=== PATIENT | female | born 1995 | race American Indian/Alaskan Native ===

== ENCOUNTER 2020-10-21 12:58 | Outpatient (CLI) | payer MEDICAID ==
[2020-10-21 13:18] VITALS: BP 124/79
--- NOTE | 2020-10-21 15:49 | Ultrasound Report ---
ULTRASOUND OBSTETRIC LIMITED ULTRASOUND BIOPHYSICAL PROFILE INDICATION / CLINICAL INFORMATION: nrnst. COMPARISON: None available. FINDINGS: BREATHING MOVEMENT = 2 GROSS BODY MOVEMENT = 2 TONE = 2 QUALITATIVE AMNIOTIC FLUID VOLUME = 2 TOTAL BIOPHYSICAL SCORE = 8/8 HEART RATE (beats per minute): 49 AMNIOTIC FLUID INDEX (cm) = 8.6 (normal = 7-24 cm) PRESENTATION: Cephalic. ADDITIONAL FINDINGS: None. IMPRESSION: 1. Biophysical Score = 8/8 Signer Name: Awais Velásquez MD Signed: 10/21/2020 3:44 PM Workstation Name: [id number]
== END 2020-10-21 16:11 | disposition home or self-care (01) ==
LOC: TRG 12:58 → APU 13:00 → TRG 16:11
PROVIDERS: ATTEND Obstetrics & Gynecology
DX: Z34.93 Encounter for supervision of normal pregnancy, unspecified, third trimester (principal); Z3A.39 39 weeks gestation of pregnancy
CPT/HCPCS: 59025; 76815; 76819